=== PATIENT | male | born 1960 | race Caucasian/White ===

== ENCOUNTER 2024-09-29 19:09 | Emergency (ER) | payer BC, SELFPAY ==
[2024-09-29 19:15] VITALS: BP 150/106
[2024-09-29 19:26] LABS: Glucose - Point of Care 151 mg/dl (70-99)
[2024-09-29 19:35] LABS: % Basophils 0.5 % (0-2); % Eosinophils 1.9 % (0-6); % Immature Granulocytes 0.2 % (0-0.5); % Lymphocytes 42.9 % (20.5-51.1); % Monocytes 10.4 % (1.7-9.3); % Neutrophils 44.1 % (42.2-75.2); Absolute Eosinophils 0.2 10^3/uL (0-0.7); Absolute Lymphocytes 3.8 10^3/uL (1.2-3.4); Absolute Monocytes 0.9 10^3/uL (0.1-0.6); Absolute Neutrophils 3.9 10^3/uL (1.4-6.5); Hematocrit 46.5 % (39.0-52.0); Hemoglobin 16.4 g/dL (13.0-18.0); Mean Corp Hgb Conc. 35.3 g/dL (33.0-37.0); Mean Corpuscular Hgb 31.4 pg (27.0-31.0); Mean Corpuscular Volume 88.9 fL (80.0-94.0); Mean Platelet Volume 9.4 fL (7.4-10.4); Nucleated Red Blood Cells % 0 % (-); Platelet Count 276 10^3/uL (130-400); Red Blood Cell Count 5.23 10^6/uL (4.70-6.10); Red Cell Dist. Width 12.2 % (11.5-14.5); White Blood Cell Count 8.7 10^3/uL (4.8-10.8)
--- NOTE | 2024-09-29 19:40 | ED.CVA ---
History of Present Illness
General
Chief Complaint: CVA/TIA Symptoms
Source: patient and spouse
Time Seen by Provider: 09/29/24 19:28
Onset of Stroke Symptoms
Onset of symptoms known: Yes
Date of onset of symptoms: 09/29/24
Time of onset of symptoms: 18:00
History of Present Illness
History of Present Illness:
63-year-old male presents complaining of having an episode of confusion. Patient was telling a story when he felt a pop in his head as well as the sensation lost his train of thought. Took a while for the patient to get back onto track and
remember the details of the story he was telling. He did not have any focal weakness or slurred speech. Was with him and did not feel like his speech was garbled. Rather that he just lost his train of thought. However patient was concerned and
came for evaluation. Currently feels at his baseline. patient did consume some alcoholic beverages tonight..
Past History
Past History
ED Past Medical History: HTN
Social History
Personal: Partner
Living: with family
Employment: Employed
Phy Exam
Physical Exam
Physical Exam:
General: Awake, Alert, Oriented X3. No acute distress.
Vitals: unremarkable
Head: Atraumatic
Eyes: Pupils equal, EOMI
Throat: Airway intact, no exudates
Neck: Trachea midline
Lungs: Clear and equal b/l
Heart: Regular rate, no murmurs
Abd: Soft, Nontender, No pulsatile mass
Neuro: Cranial nerves intact, muscle strength equal bilaterally, cerebellar exam normal
Skin: Warm, dry, no rash
Extremities: pulses equal b/l, no edema
Course
Orders/Labs/Results
Orders:
Orders
09/29/24 19:22
Electrocardiogram (*1) Urgent
Reason for Study: Fatigue / Weakness
EKG- Treatment ONCE
09/29/24 19:25
CT Head W/o Iv Contrast Urgent
Comment:
Reason For Exam: dizziness
09/29/24 19:26
Complete Blood Count/With Diff Urgent
Comprehensive Metabolic Panel Urgent
Abnormal Lab Results
09/29/24 09/29/24
19:25 19:26
MCH 31.4 H pg
(27.0-31.0)
Absolute Lymphs (auto) 3.8 H 10^3/uL
(1.2-3.4)
Absolute Monos (auto) 0.9 H 10^3/uL
(0.1-0.6)
Monocytes % 10.4 H %
(1.7-9.3)
Glucose 160 H mg/dl
(70-99)
ALT 53 H U/L
(0-50)
Albumin 5.2 H g/dl
(3.5-5.0)
POC Glucose 151 H mg/dl
(70-99)
09/29/24 19:26
09/29/24 19:26
Vital Signs
Initial and Last Documented VS:
Initial Vital Signs
Temp Pulse Resp BP Pulse Ox
98.1 F 87 19 150/106 96
09/29/24 19:15 09/29/24 19:15 09/29/24 19:15 09/29/24 19:15 09/29/24 19:15
Last Documented Vital Signs
Temp Pulse Resp BP Pulse Ox
98.1 F 85 21 106/65 94
09/29/24 19:15 09/29/24 21:15 09/29/24 21:15 09/29/24 21:13 09/29/24 21:15
MDM/Problems Addressed
Differential Diagnosis Includes:
Alcohol intoxication, CVA, subdural
MDM/Problems Addressed:
Patient presents after the procedure that he was confused. Neurologic exam is normal here. CT and labs are reassuring. Patient endorses drinking some beer and clinically appears at least mildly intoxicated. Suspect alcohol may have contributed
to his inability to keep her train of thought. However patient is speaking clearly at the time of discharge. No evidence of an unstable process ongoing.
*Radiology
Radiology exam reviewed: radiology read reviewed
*Pulse Oximetry
Patient hypoxic: no
*EKG
Interpreted by ED Provider?: Yes
Interpretation: normal
Heart Rate: 85
Rate: normal
Rhythm: sinus
[place]: normal axis
Interval: normal interval
QRS Pattern: normal QRS
Ischemia: no ischemia
*[employer] Interpretation
Rate: normal
Interpretation: normal
Rhythm: sinus
*Critical Care Note
Total Time (30-74mins, 75-104mins- exclusive of procedures): Not Applicable
ED Attending Note
-
Portions of this chart may have been created with voice recognition software.� Occasional wrong word or��sound alike� substitutions may have occurred due to the inherent limitations of voice recognition software.
Discharge Plan
Departure
Patient Disposition: Home (Routine Discharge)
Date of Disposition: 09/29/24
Time of Disposition: 21:16
Patient with high blood pressure during this ER visit?: Yes
Condition: Good
Discharge Problem:
Acute confusion
Instructions: BLOOD PRESSURE
Prescriptions:
No Action
losartan 50 mg Tablet
50 mg PO DAILY
metformin 500 mg Tablet
500 mg PO BID
rosuvastatin 20 mg Tablet
20 mg PO DAILY
Referrals:
Honorio Lloyd DO [Family Provider] -
Activity Restrictions/Additional Instructions:
Your testing here is unremarkable. There is no evidence for a stroke. Follow up with Dr. Lloyd in the next weeks or so.
Interventions
Interventions:
*Risk Screen - Suicide Last Done: 09/29/24 19:15
*General Assessment Last Done: 09/29/24 19:15
*Neglect/Abuse Screening Last Done: 09/29/24 19:15
ED- Fall Risk Assessment Last Done: 09/29/24 21:33
*ED COVID-19 Vaccine History Last Done: 09/29/24 19:15
*Nursing Disposition Last Done: 09/29/24 21:33
ED- Pulmonary Assessment Last Done: 09/29/24 19:39
ED- Neurological Assessment Last Done: 09/29/24 19:39
ED- Cardiac Assessment Last Done: 09/29/24 19:39
Discharge Date and Time
Discharge Date/Time: 09/29/24 21:33
Print Language: HUNGARIAN
[2024-09-29 19:51] LABS: ALT (SGPT) 53 U/L (0-50); AST (SGOT) 33 U/L (17-59); Albumin 5.2 g/dl (3.5-5.0); Alkaline Phosphatase 40 U/L (38-126); Blood Urea Nitrogen 12 mg/dl (9-20); Calcium 9.8 mg/dl (8.4-10.2); Carbon Dioxide 24 mmol/L (22-30); Chloride 105 mmol/L (98-107); Glucose 160 mg/dl (70-99); Potassium 4.3 mmol/L (3.5-5.1); Sodium 143 mmol/L (135-145); Total Bilirubin 0.5 mg/dl (0.2-1.3); Total Protein 7.6 g/dl (6.3-8.2); eGFR > 60.00
[2024-09-29 21:13] VITALS: BP 106/65
== END 2024-09-29 21:33 | disposition home or self-care (01) ==
LOC: EMR 19:09
PROVIDERS: EMERGENCY PHYSICIAN Emergency Medicine; FAMILY PHYSICIAN Family Medicine
DX: R41.0 Disorientation, unspecified (principal); F10.90 Alcohol use, unspecified, uncomplicated; I10 Essential (primary) hypertension
CPT/HCPCS: 99284; 70450; 80053; 82962; 85025; 93005

== ENCOUNTER → 2025-04-17 08:10 | Outpatient (REF) | payer OTHER, SELFPAY | LOC: HWRAD 08:10 | PROVIDERS: ATTENDING PHYSICIAN Family Medicine | DX: R91.1 Solitary pulmonary nodule (principal) | CPT/HCPCS: 71250 ==